=== PATIENT | female | born 1950 | race Caucasian/White ===

== ENCOUNTER → 2019-01-12 | Outpatient (CLI) | payer MEDICARE, OTHER ==
[~2019-01-12] MED LIST: ALEN70TA3 PO; ASPI81TA50 PO; CALC1TAB75 PO; CARV6.2511 PO; COLE1TAB2 PO; CRAN200C2 PO; CRESTOR40 MG PO; EMPA25TA PO; FEXO180T81 PO; FLUT100D IH; GABA600T7 PO; INSU100I13 SQ; LEVO112T4 PO; LOSA100T14 PO; MELO15TA23 PO; METF10007 PO; MONT10TA9 PO; MULT1TAB52 PO; OMEP40CA5 PO; POTA20TA82 PO; ROPI0.5T PO; SITA100T PO; TIZA4TAB PO; TRAM50TA PO; VIT1TABL96 PO
[2019-01-12 11:16] LABS: BASO % 1 % (0-3); EOS # 0.1 x10^3/uL (0.0-0.7); EOS % 2 % (0-3); HEMATOCRIT 35.6 % (36.0-47.0); HEMOGLOBIN 11.7 g/dL (12.0-15.5); LYMPH # 1.8 x10^3/uL (1.0-4.8); LYMPH % 33 % (24-48); MEAN CORPUSCULAR HEMOGLOBIN 30 pg (25-35); MEAN CORPUSCULAR HGB CONC 33 g/dL (31-37); MEAN CORPUSCULAR VOLUME 91 fL (79-100); MONO # 0.4 x10^3/uL (0.0-1.1); MONO % 8 % (0-9); NEUT % 56 % (31-73); PLATELET COUNT 246 x10^3/uL (140-400); RED BLOOD COUNT 3.92 x10^6/uL (3.50-5.40); RED CELL DISTRIBUTION WIDTH 15.2 % (11.5-14.5); WHITE BLOOD COUNT 5.3 x10^3/uL (4.0-11.0)
[2019-01-12 11:39] LABS: ALBUMIN 3.7 g/dL (3.4-5.0); ALBUMIN/GLOBULIN RATIO 1.2 (1.0-1.7); CALCIUM 9.3 mg/dL (8.5-10.1); CREATININE 0.8 mg/dL (0.6-1.0); GFR 70.9; POTASSIUM 4.2 mmol/L (3.5-5.1); TOTAL BILIRUBIN 0.4 mg/dL (0.2-1.0); TOTAL PROTEIN 6.9 g/dL (6.4-8.2)
--- NOTE | 2019-01-12 11:53 | EKG ---
[facility] [address] [place] [address] Test Date: 2019-01-12 Test Time: 11:50:06 Pat Name: KYREE SURESH Department: Room: Gender: F Chief Inspector: : 1950 Requested By: ALPHONSO DOTSON Order Number: [id number] Reading MD: Eulogio Lundberg MD Measurements Intervals [place] Rate: 66 P: 56 GA: 134 QRS: 52 QRSD: 80 T: 61 QT: 392 QTc: 417 Interpretive Statements SINUS RHYTHM Electronically Signed On 01-15-2019 11:09:05 CDT by Eulogio Lundberg MD
[2019-01-13 00:07] LABS: HEMOGLOBIN A1C 7.5 % (4.8-5.6)
--- NOTE | 2019-01-15 17:37 | NUR ---
FAXED CMP (GLUCOSE 242)AND HGBA1C (7.5) REPORTS TO 'S OFFICE AT 1357B 01/15/2019 AND CALLED OFFICE AT 1410 AND TALKED TO MAGDA,ONE OF OFFICE STAFF AND SHE'LL GIVE THE MESSAGE TO FIORELLA Odom APRN OR NICOLE TRAFFIC OPERATIONS MANAGER. DR.AMMAR YEPEZ'S CARDIAC CLEARANCE ON CHART.
== END | disposition home or self-care (01) ==
LOC: SURGPAT 10:19
PROVIDERS: ATTEND Neurological Surgery
DX: Z01.818 Encounter for other preprocedural examination (principal); M48.062 Spinal stenosis, lumbar region with neurogenic claudication; M54.17 Radiculopathy, lumbosacral region
CPT/HCPCS: 36415; 80053; 83036; 85025; 87641; 93005

== ENCOUNTER 2019-01-19 07:28 | Day surgery (SDC) | payer MEDICARE, OTHER ==
[~2019-01-19] VITALS: Ht 154.9 cm; Wt 77.6 kg
--- NOTE | 2019-01-19 07:04 | HP ---
ADMIT DATE: 01/19/2019. HISTORY OF PRESENT ILLNESS: The patient is a pleasant 68-year-old who has difficulty with low back pain and left greater than right leg pain, which radiates to the posterior thighs and legs. This problem started in 2013 after she fell from a ladder. She rates her pain as a 2-3/10 up to a 10/10. Walking and standing as well as grocery shopping increase her pain. Sitting helps her. She had steroid injections in her lumbar spine as well as ablation in 2014, which she said helped for a short time. PAST MEDICAL HISTORY: Arthritis, asthma, cancer, hypertension, parathyroid disease, thyroid disease, tonsillitis, diabetes. PAST SURGICAL HISTORY: Thyroidectomy in 1987, a cardiac stent in 2013, cardiac stent in 2018, bilateral carpal tunnel in 2019. FAMILY HISTORY: Cancer, diabetes, heart problems and disease, hypertension, spine problems. SOCIAL HISTORY: Retired. . Rarely exercises. Denies substance abuse. Denies tobacco use. Denies alcohol consumption. Drinks caffeine. ALLERGIES: CODEINE. CURRENT MEDICATIONS: Lantus, Jardiance, tizanidine, Crestor, colestipol, omeprazole, Januvia, losartan, metformin, levothyroxine sodium, Singulair, carvedilol, Alejandra, meloxicam, gabapentin, Fosamax, aspirin, Vision Formula, multivitamin, cranberry, calcium, potassium. REVIEW OF SYSTEMS: A 12-point review of systems was obtained and is noncontributory except that mentioned above. PHYSICAL EXAMINATION: NEUROSURGERY EXAMINATION: GENERAL APPEARANCE: Alert, pleasant, in no acute distress. HEAD: Normocephalic and atraumatic. SKIN: Warm and dry. MUSCULOSKELETAL: Lumbar paraspinal muscle bulk is normal. Range of motion in the lumbar region is restricted. Normal range of motion of the lower extremities bilaterally. EXTREMITIES: No clubbing, cyanosis or edema. NEUROLOGIC: Alert and oriented x 3, normal recent and remote memory. Strength 5/5 in bilateral upper and lower extremities. Sensory was intact to light touch in the upper and lower extremities. Reflexes are present and symmetric in the upper and lower extremities bilaterally. Normal gait. IMAGING: I reviewed a lumbar MRI scan from 12/17/2018. There are multilevel degenerative changes at L4-L5. There is a disk bulging with mild canal narrowing and significant right lateral recess narrowing. At L5-S1, there is severe foraminal narrowing bilaterally. At L3-L4, there is a left-sided disc bulging and an element of lateral recess narrowing. ASSESSMENT/ PLAN: She has multilevel disease. I do think that the foraminal narrowing bilaterally at L5-S1 is quite significant as well as the lateral recess narrowing at L4-L5 on the right. At this point, I explained to her that I was going to operate and decompress these regions and see how she did. The pattern of her pain strongly suggests S1 and/or L5 nerve root involvement. She has no pain, which radiates into her anterior thighs. I discussed with her the microdecompression of these regions. I outlined the risks of the surgery. We spoke about the expected postoperative course. I explained this may not eliminate all of her pain. She understands. She would like to go ahead with surgery. We will make the arrangements. ALPHONSO DOTSON MD DR: KYAW/sailaja JOB#: [id number] / [id number] HMOE
[~2019-01-19 07:28] MED LIST changes: +BACITRACIN 50,000 UNIT in IV NORMAL SALINE 1000ML BAG 1,000 ML IRR ONE; +BUPIVAC MPF-EPI 0.5%-1:200000 30 ML VIAL. ONE; +GELATIN SPONGE SIZE 100. ONE; +IV RINGERS,LACTATED 1000ML 1,000 ML IV SCH; +KETOROLAC 60 MG/2 ML INJ FOR OR. ONE; +LIDOCAINE 1% PF 2 ML VIAL. ID PRN; +ONDANSETRON PF 4 MG/2 ML VIAL. IV PRN; +PROCHLORPERAZINE 10 MG/2 ML VIAL. IV PRN; +THROMBIN TOPICAL 20,000 UNIT SPRAY.SYRN KIT TP ONE; -TRAM50TA PO; +fentaNYL PF VIAL 100 MCG/2 ML VIAL IV PRN
[2019-01-19] MEDS ORDERED: ceFAZolin 2GM PREMIX 2 GM/50 ML BAG IV ONE (08:00)
[2019-01-19] MEDS ORDERED: DESFLURANE > 120 MINUTES IH ONE (08:03)
[2019-01-19] MEDS ORDERED: REMIFENTANIL 1 MG VIAL. IV ONE ×2 (08:04→10:09)
[2019-01-19] MEDS ORDERED: ROCURONIUM 50 MG/5 ML VIAL. ONE (08:04)
[2019-01-19] MEDS ORDERED: NEOSTIGMINE METHYLSULFATE 5 MG/5 ML SYRINGE. ONE (08:04)
[2019-01-19] MEDS ORDERED: GLYCOPYRROLATE 1 MG/5 ML VIAL. ONE (08:04)
[2019-01-19] MEDS ORDERED: PROPOFOL 20 ML IV ONE (08:04)
[2019-01-19] MEDS ORDERED: DEXAMETHASONE SOD PHOS 4 MG/ML VIAL ONE (08:04)
[2019-01-19] MEDS ORDERED: LIDOCAINE 2% PF 5 ML VIAL. ONE (08:04)
[2019-01-19] MEDS ORDERED: fentaNYL PF VIAL 100 MCG/2 ML VIAL ONE (08:04)
[2019-01-19] MEDS ORDERED: PROPOFOL 50 ML IV ONE ×2 (08:04→09:31)
[2019-01-19] MEDS ORDERED: ONDANSETRON PF 4 MG/2 ML VIAL. ONE (08:04)
[2019-01-19] MEDS ORDERED: PHENYLEPHRINE 10 MG/ML VIAL. ONE (08:11)
[2019-01-19] MEDS ORDERED: TRAM50TA PO (11:58)
--- NOTE | 2019-01-19 12:01 | DISCH ---
DISCHARGE INSTRUCTIONS Condition on Discharge Condition on Discharge: Stable Activity After Discharge Activity Instructions for Disc: Activity as tolerated, Avoid exertion Other activity instructions: no driving for a week Bathing Instructions: Shower-keep dressing dry Lifting Instructions after Dis: No heavy lifting, No pulling or pushing, Do not lift >10 pounds Diet after Discharge Diet after Discharge: Diabetic No Calorie Level Additional Diet Restrictions: resume home diet Wound Incision Care Wound/Incision Care: Ice to area for comfort Other wound/incision instructi: may remove dressing in 48 hrs if dry then may shower, no soaking Contacting the after DC Call your doctor for: Concerns you may have Follow-Up Follow up with: Dr. Dotson's nurse in 2 weeks [phone] ALPHONSO DOTSON MD Jan 19, 2019 12:01
[2019-01-19] MEDS ORDERED: traMADol 50 MG TABLET PO ONE (12:15)
[2019-01-19 13:24] VITALS: BP 144/74
--- NOTE | 2019-01-19 16:23 | OP ---
DATE OF SURGERY: 01/19/2019 PREOPERATIVE DIAGNOSES: Lateral recess stenosis and radiculopathy, L5-S1 bilateral, L4-L5 right. POSTOPERATIVE DIAGNOSES: Lateral recess stenosis and radiculopathy, L5-S1 bilateral, L4-L5 right. OPERATION PERFORMED: 1. Bilateral hemilaminotomy with decompression of dura and nerve root, L5-S1 bilateral combined with micro foraminal decompression of the right L5 root at L5-S1. 2. Right-sided hemilaminotomy with decompression of nerve roots, L4-L5. The operation was done with EMG monitoring, SSEP monitoring, fluoroscopy, microscopic dissection. SURGEON: Jered Dotson M.D. BRONZER: SHAMIR Singh, assisted with the surgery. She assisted with the exposure, the microdecompression at every level as well as the closure. OPERATIVE INDICATIONS: The patient is a pleasant 68-year-old who developed intractable back and left greater than right leg pain, which failed conservative measures. On imaging studies, she had the above-mentioned findings and I recommended lumbar microsurgical decompression. She did have a left-sided disc bulge at L3-L4, but her symptoms were all strictly in the S1 and L5 distribution and I felt that that area was asymptomatic. I elected to decompress the L5-S1 and L4-L5. I spoke with her about the surgery, the risks, technique and the expected postoperative course and she wished me to go ahead. DESCRIPTION OF PROCEDURE: Following general endotracheal anesthesia, the patient was positioned prone on the Deny table. Lumbar region was prepped and draped in the standard fashion. GARTH hose and AV impulse boots were applied for DVT prophylaxis. The microscope was draped. Fluoroscopy was draped and brought into the field. Monitoring was established. Ancef 2 grams was given less than 1 hour prior to the initiation of surgery. Using fluoroscopic guidance, a small midline incision was made from mid L4 to mid S1. I dissected down skin and subcutaneous tissue, reflected the paraspinal muscles first to the right and placed a [place] microdisc retractor and exposed the L5-S1 on the right. I brought in the microscope and through the microscope using a high speed air drill and microscopic technique, I burred down a generous hemilaminotomy. I trimmed away very thickened ligamentum flavum. There were a number of spurs compressing the root and then was sharply angulated from severe lateral recess stenosis and as I trimmed this material away and fully decompressed the region, the nerve moved laterally nicely and was well decompressed. The disc was bulging slightly, but very very firm and no discectomy was warranted. I then switched to the contralateral side and performed the identical operation at L5-S1. I did carry my bone work superiorly and visualized the L5 root as it rounded the pedicle of L5 and followed this at a distance to ensure that the severe foraminal narrowing seen on the MRI scan was well decompressed at this level. Following decompression of the L5 root in the foramen, then I moved to L4-L5 and performed a hemilaminotomy and microdecompression at this level and there was thickened ligamentum flavum and the lateral stenosis with marked compression of the nerve and as I decompressed the region, the nerve moved laterally nicely, I irrigated copiously. There were a few epidural veins, which I coagulated. At L5-S1 on the left, there was a large vein which was tethering the S1 root down and I did coagulate and divide this with microscissors using microscopic technique. At all levels, I felt that I had an excellent decompression. I irrigated copiously. I did use a bone wax as well as bipolar cautery for hemostasis. I removed the retractor and assured myself of perfect hemostasis in the muscle and then I irrigated copiously, closed the wound in layers with absorbable suture and the skin was closed with a 4-0 subcuticular stitch. The operation went very well and I was quite pleased with the surgery. JERED DOTSON MD DR: KYAW/sailaja JOB#: [id number] / [id number] HOME
--- NOTE | 2019-01-21 08:11 | PATHOLOGY ---
[facility] Accession Number: [id number] . 01 Material submitted: . vertebral column - LUMBAR DECOMPRESSION . 01 Clinician provided ICD-10: n . 01 Clinical history: . Lumbar stenosis with neurogenic claudication and radiculopathy . 02 Diagnosis: Segments of fibrocartilaginous, adipose, and skeletal muscle tissue and bone, lumbar decompression: - Degenerative changes of fibrocartilaginous tissue. (JPM:emergency medicine physician assistant; 01/20/2019) MBR/01/20/2019 . 02 Comment: There is no evidence of an acute inflammatory process or malignancy. (JPM:emergency medicine physician assistant; 01/20/2019) . 02 Electronically signed: . Petros Gray MD, Pathologist NPI- [id number] . 01 Gross description: . The specimen is received in formalin, labeled "Gela, Leslie, lumbar decompression" and consists of multiple fragments of pink-anthony, rubbery soft tissue and gritty bone measuring 4.4 x 4.3 x 1.2 cm in aggregate. A community relations representative portion is submitted in A1 following decalcification. (SDY; 01/19/2019) SYU/SYU . 02 Pathologist provided ICD-10: M99.73, G95.19, M54.16 . 02 CPT . 102125, [id number] Specimen Comment: A courtesy copy of this report has been sent to Specimen Comment: [phone], . Specimen Comment: Report sent to / DR CORTEZ Performed at: [address], [place], [place] [id number] MD Davis Jeong MD Phone: [phone] Performed at: 02 [facility] [address] [place], [place] [id number] MD Petros Gray MD Phone: [phone]
== END 2019-01-19 13:58 | disposition home or self-care (01) ==
LOC: SURG 07:28
PROVIDERS: ATTEND Neurological Surgery
DX: M48.061 Spinal stenosis, lumbar region without neurogenic claudication (principal); M54.16 Radiculopathy, lumbar region; Z88.5 Allergy status to narcotic agent; J45.909 Unspecified asthma, uncomplicated; M19.90 Unspecified osteoarthritis, unspecified site; I10 Essential (primary) hypertension; E11.9 Type 2 diabetes mellitus without complications; Z98.890 Other specified postprocedural states; Z83.3 Family history of diabetes mellitus; Z82.49 Family history of ischemic heart disease and other diseases of the circulatory system; Z79.84 Long term (current) use of oral hypoglycemic drugs; Z79.899 Other long term (current) drug therapy
CPT/HCPCS: 63047; 63048; 76000; 82962; 97162; 97530; G8978; G8979; G8980; J1100; J1885; J2001; J2405; J2704; J2710; J3010; J3490; J7030; 88304; 88311; A7015; J0696; J7120